=== PATIENT | female | born 2000 | race Caucasian/White ===

== ENCOUNTER 2023-07-27 15:40 | Inpatient (IN) | payer OTHER ==
[2023-07-27 16:38] LABS: EOS % 0.6 % (0-4.5); HEMATOCRIT 35.8 % (32.4-45.2); HEMOGLOBIN 12.3 GM/dL (10.7-15.3); LYMPH % 24.2 % (8-40); MCH 30.4 pg (25.7-33.7); MCHC 34.2 g/dl (32.0-36.0); MEAN CELL VOLUME 88.9 fl (80-96); MEAN PLT VOLUME 9.1 fl (7.5-11.1); MONO % 5.4 % (3.8-10.2); NEUT % 68.8 % (42.8-82.8); PLATELET COUNT 109 10^3/uL (134-434); RBC 4.03 M/mm3 (3.60-5.2); RDW 13.6 % (11.6-15.6); WHITE BLOOD COUNT 10.4 K/mm3 (4.0-10.0)
[2023-07-27 16:40] LABS: INR 0.88 (0.83-1.09); PROTHROMBIN TIME (PATIENT) 10.2 SEC (9.7-13.0)
[2023-07-27 16:42] LABS: ACTIVATED PTT 29.7 SECONDS (25.2-36.5)
[2023-07-27 16:46] LABS: POTASSIUM 3.9 mmol/L (3.5-5.1)
[2023-07-27 16:48] LABS: BLOOD UREA NITROGEN 4.6 mg/dL (7-18)
[2023-07-27 16:51] LABS: CREATININE 0.4 mg/dL (0.55-1.3)
[2023-07-27] MEDS: DEXTROSE 5%-LACTATED RINGERS 1,000 ML IV SCH (17:00)
[2023-07-27 17:09] LABS: BILIRUBIN,DIRECT 0.1 mg/dL (0.0-0.2)
[2023-07-27 17:11] LABS: BILIRUBIN,TOTAL 0.3 mg/dL (0.2-1); TOT PROT 6.3 g/dl (6.4-8.2)
[2023-07-27 17:15] VITALS: BMI 34.6
[2023-07-27] MEDS: MISOPROSTOL 25 MCG TABLET (COMPOUNDED BY PHARMACY) PV SCH (19:20)
[2023-07-27] MEDS ORDERED: morphine SULFATE 4 MG/ML VIAL ONE (23:47)
[2023-07-27] MEDS: morphine SULFATE 4 MG/ML VIAL IVPB ONE (23:55)
[2023-07-28] MEDS ORDERED: FENTANYL/BUPIVACAINE/NS/PF - PCEA - 50 ML DISP.SYRIN EP ONE (02:37)
[2023-07-28] MEDS: SODIUM CHLORIDE 1,000 ML IV STA (02:45)
[2023-07-28] MEDS: FENTANYL/BUPIVACAINE/NS/PF - PCEA - 50 ML DISP.SYRIN EP SCH (03:10)
[2023-07-28] MEDS ORDERED: NALOXONE HCL 0.4 MG/ML VIAL IVPUSH PRN (03:21)
[2023-07-28] MEDS ORDERED: OXYTOCIN 20 UNITS in 0.9% NS 20 UNIT/1,000 ML INFUS.BAG IV ONE (04:35)
[2023-07-28] MEDS: SODIUM CHLORIDE 500 ML IV STA (05:20)
[2023-07-28] MEDS ORDERED: LIDOCAINE HCL 1% PRESERVATIVE FREE - 30ML VIAL ONE (06:43)
[2023-07-28] MEDS ORDERED: WITCH HAZEL 50% (TUCKS) 40 PAD/JAR PAD TP PRN (07:49)
[2023-07-28] MEDS ORDERED: BENZOCAINE 28 GM HEMORRHOIDAL OINTMENT TP PRN (07:49)
[2023-07-28] MEDS ORDERED: OXYTOCIN 20 UNITS in 0.9% NS 20 UNIT/1,000 ML INFUS.BAG IV SCH (08:00)
[2023-07-28 08:41] LABS: CORD BASE EXCESS -5.7 mmol/L (0-2); CORD HCO3 20.5 mmHg (20-29); CORD PCO2 42.6 mmHg (30-78); CORD pH 7.301 (7.14-7.44)
[2023-07-28 08:42] LABS: CORD BASE EXCESS -9.9 mmol/L (0-2); CORD PCO2 58.1 mmHg (30-78); CORD pH 7.154 (7.14-7.44)
[2023-07-28] MEDS ORDERED: IBUPROFEN 600 MG TABLET (FP) PO ONE (09:06)
[2023-07-28] MEDS: IBUPROFEN 600 MG TABLET (FP) PO PRN (09:10)
[2023-07-28] MEDS: ACETAMINOPHEN 325 MG TABLET (FP) PO PRN (11:34)
[2023-07-29 08:02] LABS: BASO % 0.6 % (0-2.0); EOS % 1.2 % (0-4.5); HEMATOCRIT 28.1 % (32.4-45.2); HEMOGLOBIN 9.6 GM/dL (10.7-15.3); LYMPH % 25.6 % (8-40); MCH 30.6 pg (25.7-33.7); MCHC 34.3 g/dl (32.0-36.0); MEAN CELL VOLUME 89.2 fl (80-96); MEAN PLT VOLUME 9.6 fl (7.5-11.1); MONO % 5.1 % (3.8-10.2); NEUT % 67.5 % (42.8-82.8); PLATELET COUNT 98 10^3/uL (134-434); RBC 3.14 M/mm3 (3.60-5.2); RDW 14.1 % (11.6-15.6); WHITE BLOOD COUNT 9.8 K/mm3 (4.0-10.0)
[2023-07-29 22:14] VITALS: RESP 18
[2023-07-30 10:29] VITALS: BP 115/77; PULSE 81; TEMP 98.1
== END 2023-07-30 13:08 | disposition home or self-care (01) | DRG 560 ==
LOC: JLDR 15:40 → J3W 07-28 09:15
PROVIDERS: ADMIT Obstetrics & Gynecology Maternal & Fetal Medicine; ATTEND Obstetrics & Gynecology Maternal & Fetal Medicine
PROC: 10E0XZZ Delivery of Products of Conception, External Approach (ICD-10-PCS; principal; 2023-07-28)
PROC: 0KQM0ZZ Repair Perineum Muscle, Open Approach (ICD-10-PCS; 2023-07-28)
DX: O48.0 Post-term pregnancy (principal); Z3A.40 40 weeks gestation of pregnancy; O99.12 Other diseases of the blood and blood-forming organs and certain disorders involving the immune mechanism complicating childbirth; D69.6 Thrombocytopenia, unspecified; O69.81X0 Labor and delivery complicated by cord around neck, without compression, not applicable or unspecified; O70.1 Second degree perineal laceration during delivery; Z37.0 Single live birth
CPT/HCPCS: 36415; 36600; 59409; 80048; 80076; 82803; 85025; 85610; 85730; 86780; 86850; 86900; 86901; 88307-TC